=== PATIENT | female | born 1945 | race African-American/Black ===

== ENCOUNTER → 2016-06-02 | Outpatient (CLI) | payer MEDICARE ==
--- NOTE | 2016-06-02 17:39 | WOMENS IMAGING REPORT ---
EXAM DESCRIPTION: BILAT SCREENING MAMMO W/CAD COMPLETED DATE/TIME: 06/02/2016 2:59 pm REASON FOR STUDY: Z12.31 ROUTINE SCREENING MAMMO Z12.31 ENCNTR SCREEN MAMMOGRAM FOR MALIGNANT NEOPL ASM OF SANDY COMPARISON: Multiple since 2008 TECHNIQUE: Standard craniocaudal and mediolateral oblique views of each breast recorded using Movellasa l acquisition. LIMITATIONS: None. FINDINGS: Findings present which are benign by mammographic criteria. No suspicious masses, calcifi cations or architectural distortion. Read with the assistance of CAD. .[facility] - R2 Cenova Version 1.3 .[facility] Imaging - R2 Cenova Version 1.3 .[facility] - R2 Cenova Version 2.4 .[facility] - R2 Cenova Version 2.4 .[facility] - R2 Splitting Machine Operator Version 9.2 Benign mammographic findings may include one or more of the following: Smooth masses, popcorn/rim/co arse calcifications, asymmetries, post-procedure changes, and lesions with long-standing stability. BREAST DENSITY: c. The breasts are heterogeneously dense, which may obscure small masses. BIRAD: 2 BENIGN FINDING(S) RECOMMENDATION: ROUTINE SCREENING COMMENT: PATIENT NOTIFIED BY LETTER. The [employer] recommends an annual screening mammogram for women aged 40 years or over. Each patient will receive a reminder prior to the anniversary date of her mammogram. The [employer] (ACR) has developed recommendations for screening MRI of the breast s in certain patient populations, to be used in conjunction with mammography. Breast MRI surveillanc e may be appropriate for women with more than 20% lifetime risk of developing breast cancer as deter mined by genetic testing, significant family history of the disease, or history of mantle radiation f or Hodgkins Disease. ACR Practice Guidelines 2008. TECHNICAL DOCUMENTATION: FINDING NUMBER: (1) ASSESSMENT: (1) JOB ID: [id number] [employer]- All Rights Reserved
== END ==
LOC: WI 09:41
PROVIDERS: ATTEND Internal Medicine
DX: Z12.31 Encounter for screening mammogram for malignant neoplasm of breast (principal)
CPT/HCPCS: 77067; G0202

== ENCOUNTER → 2017-06-23 | Outpatient (CLI) | payer MEDICARE, MEDICAID ==
--- NOTE | 2017-06-23 11:41 | RADIOLOGY REPORT (SQ) ---
EXAM DESCRIPTION: KNEE LEFT 4 VIEWS COMPLETED DATE/TIME: 06/23/2017 10:16 am REASON FOR STUDY: PAIN IN LEFT KNEE M25.562 PAIN IN LEFT KNEE COMPARISON: None. NUMBER OF VIEWS: Four views. TECHNIQUE: AP, lateral, and both oblique radiographic images acquired of the left knee. LIMITATIONS: None. FINDINGS: MINERALIZATION: Normal. BONES: No acute fracture or dislocation. No worrisome bone lesions. JOINT: No significant suprapatellar knee joint effusion. Mild patellofemoral and medial compartment joint space narrowing. SOFT TISSUES: No soft tissue swelling. No radio-opaque foreign body. Spotty arterial vascular calci fication OTHER: No other significant finding. IMPRESSION: Medial and patellofemoral compartment joint space narrowing. No joint effusion. No acute fracture or malalignment TECHNICAL DOCUMENTATION: JOB ID: [id number] [employer]- All Rights Reserved
== END ==
LOC: OD 09:46
PROVIDERS: ATTEND Internal Medicine
DX: M25.562 Pain in left knee (principal)

== ENCOUNTER 2018-01-03 10:08 | Emergency (ER) | payer MEDICAID, MEDICARE ==
--- NOTE | 2018-01-03 10:59 | ER Document Report ---
ED General - General Chief Complaint: Knee Injury Stated Complaint: FALL/LEFT KNEE PAIN Time Seen by Provider: 01/03/18 10:42 Mode of Arrival: Ambulatory Information source: Patient, Relative Notes: 72-year-old -[place] female with insulin-dependent type 2 diabetes and hypertension presents after fall that occurred yesterday afternoon. Patient states she fell forward onto concrete while stepping up onto a curb outside of a skilled nursing. Complains of pain "all over", with sharp pain in the L knee and hip. Patient was able to walk with a Rollator following a fall. Currently on aspirin 81 mg daily. Denies head trauma, neck pain, loss of consciousness, vision changes, syncope. Patient denies any preceding chest pain, dizziness, shortness of breath. was with her and witnessed her trip up the curb. TRAVEL OUTSIDE OF THE [place] IN LAST 30 DAYS: No - HPI Onset: Just prior to arrival Onset/Duration: Sudden Quality of pain: Achy, Sharp Severity: Moderate Pain Level: 3 Associated symptoms: None, Body/muscle aches. denies: Chest pain, Chills, Nausea, Vomiting, Shortness of breath Exacerbated by: Movement, Walking Similar symptoms previously: No Recently seen / treated by doctor: No Past Medical History - General Information source: Patient - Social History Smoking Status: Current Every Day Smoker Cigarette use (# per day): Yes - 1/2-1ppd Smoking Education Provided: Yes Frequency of alcohol use: None Drug Abuse: None Lives with: Family Family History: DM, Hypertension - Medical History Notes: Insulin-dependent type 2 diabetes, hypertension, COPD - Past Medical History Cardiac Medical History: Pulmonary Medical History: Neurological Medical History: Denies: Hx Seizures Musculoskeletal Medical History: Past Surgical History: Reports: Hx Hysterectomy. Denies: Hx Pacemaker - Immunizations Hx Diphtheria, Pertussis, Tetanus Vaccination: Yes Review of Systems - Review of Systems Notes: REVIEW OF SYSTEMS: CONSTITUTIONAL : Denies fever, chills, or sweats. Denies recent illness. Denies weight loss, recent hospitalizations. EENT: Denies visual changes, eye pain. Denies nasal or sinus congestion or discharge. Denies sore throat, oral lesions, difficulty swallowing. CARDIOVASCULAR: Denies chest pain. Denies palpitations. Denies lower extremity edema. RESPIRATORY: Denies cough, cold, or chest congestion. Denies shortness of breath, wheezing. GASTROINTESTINAL: Denies abdominal pain or distention. Denies nausea, vomiting , or diarrhea. Denies blood in vomitus, stools, or per rectum. Denies black, tarry stools. Denies constipation. GENITOURINARY: Denies difficulty urinating, painful urination, frequency, blood in urine, or vaginal discharge. MUSCULOSKELETAL: Denies back or neck pain or stiffness. (+) bilateral knee pain, bilateral hip pain. SKIN: Denies rash, lesions or sores. HEMATOLOGIC : Denies easy bruising or bleeding. LYMPHATIC: Denies swollen glands. NEUROLOGICAL: Denies confusion or altered mental status. Denies passing out or loss of consciousness. Denies dizziness or lightheadedness. Denies headache. Denies weakness or paralysis. Denies problems difficulty with ambulation, slurred speech. Denies sensory loss, numbness, or tingling. Denies seizures. PSYCHIATRIC: Denies anxiety or stress. Denies depression, suicidal ideation, or homicidal ideation. Denies visual or auditory hallucinations. Physical Exam - Vital signs Vitals: Temp Pulse Resp BP Pulse Ox 98.4 F 77 16 124/53 L 97 01/03/18 10:15 01/03/18 10:15 01/03/18 10:15 01/03/18 10:15 01/03/18 10:15 - Notes Notes: PHYSICAL EXAMINATION: GENERAL: Well-appearing, well-nourished and in no acute distress. HEAD: Atraumatic, normocephalic. EYES: Pupils equal round and reactive to light, extraocular movements intact, conjunctiva are normal. ENT: Nares patent, oropharynx clear without exudates. Moist mucous membranes. NECK: Normal range of motion, supple without lymphadenopathy LUNGS: Breath sounds clear to auscultation bilaterally and equal. No wheezes rales or rhonchi. HEART: Regular rate and rhythm without murmurs ABDOMEN: Soft, nontender, nondistended abdomen. No guarding, no rebound. No masses appreciated. Female : deferred Musculoskeletal: flexion and extension of bilateral knees intact with mild pain , no crepitus or effusion noted. Internal and external rotation of bilateral hips intact. No pitting or edema. No cyanosis. No obvious deformity. DP, radial pulse intact. Pelvis stable. NEUROLOGICAL: Cranial nerves grossly intact. Normal speech, normal gait. Normal sensory, motor exams PSYCH: Normal mood, normal affect. SKIN: Warm, Dry, normal turgor, no rashes or lesions noted. Course - Re-evaluation Re-evalutation: Hip X-Ray 01/03/18 10:53 IMPRESSION: No acute findings Knee X-Ray 01/03/18 10:53 IMPRESSION: No acute findings 01/04/18 14:48 72-year-old female presents after a mechanical fall with complaint of left hip and left knee pain. Upon arrival vitals reviewed and within normal limits. Patient does not appear toxic or dehydrated. She is in no acute distress. She does have some mild pain with range of motion of the knee but no obvious deformity of the hip. Pulses are intact, sensation is intact, cap refill is intact. X-rays of the left knee and hip were obtained. Left knee shows mild effusion. Patient was provided an Brian wrap. She already has a walker at home. She was advised to ice and take Tylenol as needed for pain. Patient provided the opportunity to ask questions, and express concerns. Discharge instructions discussed. Patient is agreeable with discharge home. Return indications explained and discussed with the patient who displays understanding. Patient encouraged to return to the emergency department immediately with any concerns. - Vital Signs Vital signs: Temp Pulse Resp BP Pulse Ox 98.1 F 80 14 125/52 L 97 01/03/18 12:37 01/03/18 12:37 01/03/18 12:37 01/03/18 12:37 01/03/18 12:37 - Diagnostic Test Radiology reviewed: Image reviewed, Reports reviewed Discharge - Discharge Clinical Impression: Effusion, left knee Left knee pain Qualifiers: Chronicity: acute Qualified Code(s): M25.562 - Pain in left knee Strain of left hip Qualifiers: Encounter type: initial encounter Qualified Code(s): S76.012A - Strain of muscle, fascia and tendon of left hip, initial encounter Fall Qualifiers: Encounter type: initial encounter Qualified Code(s): W19.XXXA - Unspecified fall, initial encounter Condition: Good Disposition: HOME, SELF-CARE Instructions: Ice & Elevation ([facility]), Muscle Strain ([facility]), Sprained Knee ([facility]) Referrals: REJI SEAY MD [Primary Care Provider] - Follow up as needed
--- NOTE | 2018-01-03 11:50 | RADIOLOGY REPORT (SQ) ---
EXAM DESCRIPTION: HIP LEFT AP/LATERAL COMPLETED DATE/TIME: 01/03/2018 11:26 am REASON FOR STUDY: fall COMPARISON: None. NUMBER OF VIEWS: Two views. TECHNIQUE: AP pelvis and additional frog-leg view of the left hip. LIMITATIONS: None. FINDINGS: MINERALIZATION: Normal. LEFT HIP: No fracture or dislocation. No worrisome bone lesions. No significant joint space narrowi ng or bony spurring. RIGHT HIP: No fracture or dislocation. No worrisome bone lesions. No significant joint space narrow ing or bony spurring. PUBIS AND ISCHIUM: No fracture. PELVIS: No fracture. SACRUM: No fracture or dislocation. No worrisome bone lesions. LOWER LUMBAR SPINE: Not in the field of view SOFT TISSUES: Bilateral common iliac arterial vascular stents OTHER: No other significant finding. IMPRESSION: No acute findings TECHNICAL DOCUMENTATION: JOB ID: [id number] [employer]- All Rights Reserved Reading location - IP/workstation name: [email or web address]
--- NOTE | 2018-01-03 11:51 | RADIOLOGY REPORT (SQ) ---
EXAM DESCRIPTION: KNEE LEFT 4 VIEW COMPLETED DATE/TIME: 01/03/2018 11:26 am REASON FOR STUDY: fall COMPARISON: None. NUMBER OF VIEWS: Four views. TECHNIQUE: AP, lateral, and both oblique radiographic images acquired of the left knee. LIMITATIONS: None. FINDINGS: MINERALIZATION: Normal. BONES: No acute fracture or dislocation. No worrisome bone lesions. JOINT: Trace suprapatellar knee joint effusion. Mild patellofemoral compartment joint space narrowin g. SOFT TISSUES: No soft tissue swelling. No radio-opaque foreign body. Arterial vascular calcificatio n along the tibioperoneal trunk and calf vessels OTHER: No other significant finding. IMPRESSION: No acute findings TECHNICAL DOCUMENTATION: JOB ID: [id number] [employer]- All Rights Reserved Reading location - IP/workstation name: [email or web address]
[2018-01-03] MEDS ORDERED: HYDROCODONE/ACETAMINOPHEN 5-325 MG TABLET PO ONE (12:15)
[2018-01-03 12:40] VITALS: BP 125/52
== END 2018-01-03 12:41 | disposition home or self-care (01) ==
LOC: ER 10:08
DX: S76.012A Strain of muscle, fascia and tendon of left hip, initial encounter (principal); M25.562 Pain in left knee; M25.462 Effusion, left knee; W10.1XXA Fall (on)(from) sidewalk curb, initial encounter; Y93.89 Activity, other specified; Y92.129 Unspecified place in nursing home as the place of occurrence of the external cause; I10 Essential (primary) hypertension; F17.210 Nicotine dependence, cigarettes, uncomplicated; J44.9 Chronic obstructive pulmonary disease, unspecified; E11.9 Type 2 diabetes mellitus without complications; Z79.4 Long term (current) use of insulin; Z79.82 Long term (current) use of aspirin
CPT/HCPCS: 99283; 73502; 73564; A9270

== ENCOUNTER 2018-10-13 16:42 | Emergency (ER) | payer MEDICARE ==
--- NOTE | 2018-10-13 17:31 | ER Document Report ---
ED Medical Screen (RME) - General Chief Complaint: Ear Pain Stated Complaint: EAR PAIN Time Seen by Provider: 10/13/18 17:27 Primary Care Provider: REJI SEAY MD [Primary Care Provider] - Follow up as needed Mode of Arrival: Wheelchair Information source: Patient Notes: 72-year-old female presented to ED for complaint of left ear pain. She states she also has a very sore throat and cannot swallow. When I examined her ear there is no signs of infection in her left ear but she does have a very swollen throat with difficulty swallowing. She does have lymphadenopathy to the left side. Right side of her throat is not swollen. I have greeted and performed a rapid initial assessment of this patient. A comprehensive ED assessment and evaluation of the patient, analysis of test results and completion of medical decision making process will be conducted by an additional ED providers. Dictation of this chart was performed using voice recognition software; therefore, there may be some unintended grammatical errors. TRAVEL OUTSIDE OF THE [place] IN LAST 30 DAYS: No - Related Data Allergies/Adverse Reactions: No Known Allergies Allergy (Verified 10/13/18 16:59) Past Medical History - Past Medical History Cardiac Medical History: Reports: Hx Hypercholesterolemia, Hx Hypertension Pulmonary Medical History: Neurological Medical History: Denies: Hx Seizures Endocrine Medical History: Reports: Hx Diabetes Mellitus Type 2 Renal/ Medical History: Denies: Hx Peritoneal Dialysis Musculoskeltal Medical History: Past Surgical History: Reports: Hx Hysterectomy. Denies: Hx Pacemaker - Immunizations Hx Diphtheria, Pertussis, Tetanus Vaccination: Yes Physical Exam - Vital signs Vitals: Temp Pulse Resp BP Pulse Ox 99 F 85 18 146/80 H 99 10/13/18 17:00 10/13/18 17:00 10/13/18 17:00 10/13/18 17:00 10/13/18 17:00 Course - Vital Signs Vital signs: Temp Pulse Resp BP Pulse Ox 99 F 85 18 146/80 H 99 10/13/18 17:00 10/13/18 17:00 10/13/18 17:00 10/13/18 17:00 10/13/18 17:00 Doctor's Discharge - Discharge Referrals: REJI SEAY MD [Primary Care Provider] - Follow up as needed
[2018-10-13 18:24] LABS: ALANINE AMINOTRANSFERASE 15 U/L (9-52); ALBUMIN 4.5 g/dL (3.5-5.0); ALKALINE PHOSPHATASE 95 U/L (38-126); ANION GAP 12 (5-19); ASPARTATE AMINO TRANSFERASE 26 U/L (14-36); BILIRUBIN,DIRECT 0.5 mg/dL (0.0-0.4); BILIRUBIN,TOTAL 0.6 mg/dL (0.2-1.3); BLOOD UREA NITROGEN 15 mg/dL (7-20); CALCIUM 10.2 mg/dL (8.4-10.2); CARBON DIOXIDE 30 mmol/L (22-30); CHLORIDE 99 mmol/L (98-107); GLUCOSE 236 mg/dL (75-110); TOTAL PROTEIN 8.7 g/dL (6.3-8.2)
[2018-10-13 18:51] LABS: ABSOLUTE BASOPHILS # (AUTO) 0.1 10^3/uL (0.0-0.2); ABSOLUTE EOSINOPHILS # (AUTO) 0.2 10^3/uL (0.0-0.6); ABSOLUTE LYMPHOCYTES (AUTO) 2.5 10^3/uL (0.5-4.7); ABSOLUTE MONOCYTES (AUTO) 0.6 10^3/uL (0.1-1.4); ABSOLUTE NEUT (AUTO) 5.7 10^3/uL (1.7-8.2); BASOPHILS % (AUTO) 0.9 % (0-2); EOSINOPHILS % (AUTO) 2.1 % (0-6); HEMATOCRIT 37.7 % (36.0-47.0); HEMOGLOBIN 12.5 g/dL (12.0-15.5); LYMPHOCYTES % (AUTO) 27.2 % (13-45); MEAN CORPUSCULAR HEMOGLOBIN 28.5 pg (27.0-33.4); MEAN CORPUSCULAR HGB CONC 33.2 g/dL (32.0-36.0); MEAN CORPUSCULAR VOLUME 86 fl (80-97); MONOCYTES % (AUTO) 6.8 % (3-13); PLATELET COUNT 269 10^3/uL (150-450); RED CELL DISTRIBUTION WIDTH 13.6 % (11.5-14.0); TOTAL CELLS COUNTED % (AUTO) 100 %
[2018-10-13] MEDS ORDERED: ACETAMINOPHEN 325 MG TABLET PO ONE (19:22)
[2018-10-13] MEDS ORDERED: OXYCODONE HCL IR 5 MG TABLET PO ONE (19:22)
--- NOTE | 2018-10-13 19:22 | RADIOLOGY REPORT (SQ) ---
EXAM DESCRIPTION: CT SOFT TISSUE NECK WITH COMPLETED DATE/TIME: 10/13/2018 6:49 pm REASON FOR STUDY: Swollen throat difficulty swallowing COMPARISON: None. TECHNIQUE: Post IV contrasted scanning from skull base through lung apices with review of bone, soft tissue and lung windows. Reconstructed coronal and sagittal MPR images reviewed. All images stored on PACS. All CT scanners at this facility use dose modulation, iterative reconstruction, and/or weight based d osing when appropriate to reduce radiation dose to as low as reasonably achievable (ALARA). [facility]: Dose Right [facility]: CareDose [facility]: Dose Right [facility]: Teradose 4D [facility]: [employer] CONTRAST TYPE AND DOSE: contrast/concentration: Isovue 350.00 mg/ml; Total Contrast Delivered: 74.0 ml; Total Saline Delivered: 28.4 ml RENAL FUNCTION: GFR > 60. RADIATION DOSE: CT Rad equipment meets quality standard of care and radiation dose reduction techniq ues were employed. CTDIvol: 12.8 mGy. DLP: 358 mGy-cm. . LIMITATIONS: None. FINDINGS: SKULL BASE: Intact. MAJOR SALIVARY GLANDS: No solid or cystic masses. No inflammatory changes. LYMPHADENOPATHY: Prominent, although not pathologically enlarged bilateral cervical chain lymph nodes , likely reactive. MUCOSAL MASSES OR ASYMMETRY: The bilateral palatine tonsils are enlarged, with a large internal hypod ensity of the left tonsil measuring approximately 2.2 x 1.5 x 2.2 cm (series 2, image 33). There is a much more subtle subcentimeter hypodensity of the right palatine tonsil (series 2, image 33). LARYNX/CORDS: No abnormal findings. VASCULAR STRUCTURES: Extensive bilateral calcific atherosclerosis of the internal carotid artery orig ins, likely with greater than 50% stenosis of the left internal carotid artery origin. LUNG APICES: Unusual internal fat herniation of the right 2nd/3rd intercostal space, likely due to a lipoma (series 2, image 87). BONES: Intact. THYROID: Normal size. No masses. PARANASAL SINUSES: Clear. OTHER: No other significant finding. IMPRESSION: 1. The bilateral palatine tonsils are enlarged, with a large internal hypodensity of the left tonsil measuring approximately 2.2 x 1.5 x 2.2 cm. There is a much more subtle subcentimeter hy podensity of the right palatine tonsil. Findings are concerning for tonsillar suppuration/abscess. 2. Extensive bilateral calcific atherosclerosis of the internal carotid artery origins, likely with g reater than 50% stenosis of the left internal carotid artery origin. This may be further evaluated b y carotid ultrasound and/or CT angiogram if desired. TECHNICAL DOCUMENTATION: JOB ID: [id number] Quality ID # [id number]: Final reports with documentation of one or more dose reduction techniques (e.g., Au tomated exposure control, adjustment of the mA and/or kV according to patient size, use of iterative reconstruction technique) 2010 [employer]- All Rights Reserved Reading location - IP/workstation name: [email or web address]
[2018-10-13] MEDS ORDERED: RINGERS SOLUTION,LACTATED 1,000 ML IV ONE ×2 (19:23→20:56)
[2018-10-13] MEDS ORDERED: CLINDAMYCIN 600 MG/D5W RTU 600 MG/50 ML RTUPB IV ONE (19:23)
[2018-10-13] MEDS ORDERED: ONDANSETRON HCL INJ/PF 4 MG/2 ML SDV IV ONE (19:23)
[2018-10-13] MEDS ORDERED: KETOROLAC TROMETHAMINE INJ/PF 30 MG/1 ML SDV IV ONE (19:23)
[2018-10-13] MEDS: MORPHINE SULFATE 10 MG/ML INJ IV PRN ×2 (19:37→21:47)
[2018-10-13] MEDS ORDERED: DEXAMETHASONE SOD PHOS INJ 10 MG/1 ML VIAL IV ONE (20:56)
--- NOTE | 2018-10-13 21:02 | ER Document Report ---
ED General - General Chief Complaint: Ear Pain Stated Complaint: EAR PAIN Time Seen by Provider: 10/13/18 17:27 Primary Care Provider: REJI SEAY MD [Primary Care Provider] - Follow up as needed INES CAMPBELL DO [ASSOCIATE] - 10/15/18 Mode of Arrival: Wheelchair Notes: Patient is a 72-year-old female with past medical history of hypertension, hyperlipidemia, presents with 3 days of progressively worsening throat pain. Patient describes the pain as being isolated to her throat worse in the left versus the right. This is a severe, throbbing, dull pain worsened by swallowing. Not improved by anything. No history of similar symptoms in the past. States that she has felt like she has had a fever at home but has not recorded a temperature. Has not seen her primary care physician regarding today's concerns. States that she is able to swallow but it hurts. Denies any difficulty breathing. No trauma to the throat. TRAVEL OUTSIDE OF THE [place] IN LAST 30 DAYS: No - Related Data Allergies/Adverse Reactions: No Known Allergies Allergy (Verified 10/13/18 16:59) Past Medical History - General Information source: Patient - Social History Smoking Status: Current Every Day Smoker Frequency of alcohol use: None Drug Abuse: None Lives with: Family Family History: DM, Hypertension Patient has suicidal ideation: No Patient has homicidal ideation: No - Past Medical History Cardiac Medical History: Reports: Hx Hypercholesterolemia, Hx Hypertension Pulmonary Medical History: Neurological Medical History: Denies: Hx Seizures Endocrine Medical History: Reports: Hx Diabetes Mellitus Type 2 Renal/ Medical History: Denies: Hx Peritoneal Dialysis Musculoskeletal Medical History: Past Surgical History: Reports: Hx Hysterectomy. Denies: Hx Pacemaker - Immunizations Hx Diphtheria, Pertussis, Tetanus Vaccination: Yes Review of Systems - Review of Systems Notes: Constitutional: Positive for subjective fever HENT: Positive for throat pain Eyes: Negative for visual changes. Cardiovascular: Negative for chest pain. Respiratory: Negative for shortness of breath. Gastrointestinal: Negative for abdominal pain, positive for nausea Genitourinary: Negative for dysuria. Musculoskeletal: Negative for back pain. Skin: Negative for rash. Neurological: Negative for headaches, weakness or numbness. 10 point ROS negative except as marked above and in HPI. Physical Exam - Vital signs Vitals: Temp Pulse Resp BP Pulse Ox 99 F 85 18 146/80 H 99 10/13/18 17:00 10/13/18 17:00 10/13/18 17:00 10/13/18 17:00 10/13/18 17:00 Interpretation: Hypertensive Notes: PHYSICAL EXAMINATION: GENERAL: Appears moderately uncomfortable but in no acute distress HEAD: Atraumatic, normocephalic. EYES: Pupils equal round and reactive to light, extraocular movements intact, sclera anicteric, conjunctiva are normal. ENT: nares patent, prominent bilateral tonsillar hypertrophy, palatal hypertrophy much more dominant on the left versus right. Oropharynx is patent however. No stridor. Patient is able to swallow easily at the bedside. NECK: Normal range of motion, bilateral anterior cervical lymphadenopathy more dominant on the left versus right LUNGS: Breath sounds clear to auscultation bilaterally and equal. No wheezes rales or rhonchi. HEART: Regular rate and rhythm without murmurs ABDOMEN: Soft, nontender, normoactive bowel sounds. No guarding, no rebound. No masses appreciated. EXTREMITIES: Normal range of motion, no pitting or edema. No cyanosis. NEUROLOGICAL: No focal neurological deficits. Moves all extremities spontaneously and on command. PSYCH: Normal mood, normal affect. SKIN: Warm, Dry, normal turgor, no rashes or lesions noted. Course - Re-evaluation Re-evalutation: 10/13/18 20:59 Patient presents with 3 days of progressively worsening pain and swelling to the back of her throat more dominant on the right versus the left side. Patient is able to fully open her mouth without any significant trismus. She does have diffuse pharyngeal swelling although airway is widely patent. Dominance of swelling is towards the right side. No stridor, wheezing or tachypnea. Patient is able to drink a glass of water in front of me without any difficulty. Patient's labs are overall unremarkable. Vitals show mild tachycardia and hypertension although patient has a history of both by her report. I did discuss this case with the ENT physician on-call at [facility]. I discussed with him the CT diagnosis of a left tonsillar abscess. He states that he would advise only antibiotic treatment and nonsurgical management. He states as long as the patient does not have significant trismus or airway compromise she is safe for outpatient management on oral antibiotics. Patient has been able to swallow pills here in the emergency department. I have advised her of this recommendation and we will discharge home with 10 days of oral clindamycin and 5 days of dexamethasone. Patient has received her first dose of clindamycin and dexamethasone here in the emergency department. She is maintaining her airway, oral secretions, unable to tolerate p.o. without any significant difficulty. At this time will discharge with return precautions and follow-up recommendations. Verbal discharge instructions given a the bedside and opportunity for questions given. Medication warnings reviewed. Patient is in agreement with this plan and has verbalized understanding of return precautions and the need for ENT follow-up within the next 72 hours. - Vital Signs Vital signs: Temp Pulse Resp BP Pulse Ox 98.9 F 85 18 158/76 H 94 10/13/18 21:01 10/13/18 17:00 10/13/18 22:01 10/13/18 22:01 10/13/18 22:01 - Laboratory Result Diagrams: 10/13/18 18:20 10/13/18 17:25 Laboratory results interpreted by me: 10/13/18 17:25 Creatinine 1.26 H Est GFR ( Amer) 50 L Est GFR (Non-Af Amer) 42 L Glucose 236 H Direct Bilirubin 0.5 H Total Protein 8.7 H - Diagnostic Test Radiology reviewed: Reports reviewed Discharge - Discharge Clinical Impression: Tonsillar abscess, Throat pain, Odynophagia Condition: Good Disposition: HOME, SELF-CARE Additional Instructions: You were seen today for throat pain and swelling. The CT scan shows an abscess within your left tonsil. I spoke to Dr. Mcneal who is an ENT at [facility] in [place]. He advises antibiotic only management for this and avoid surgical management at this time. You have been started on clindamycin and given a dose of steroids here in the emergency department. Please take all antibiotics until completed. Please follow-up with ENT on Monday. Please also follow-up with your primary care physician. You need to return to the emergency department immediately if your symptoms begin to worsen specifically if you are having increasing pain, you develop any difficulty breathing, become unable to swallow, or have any other symptoms that are worrisome to you. Prescriptions: Clindamycin HCl 300 mg PO TID #30 capsule Dexamethasone [Decadron 4 mg Tablet] 4 mg PO DAILY #5 tablet Oxycodone HCl/Acetaminophen [Percocet 5-325 mg Tablet] 1 tab PO Q4H PRN #8 tablet PRN Reason: Referrals: REJI SEAY MD [Primary Care Provider] - Follow up as needed INES CAMPBELL DO [ASSOCIATE] - 10/15/18
[2018-10-13 22:38] VITALS: BP 158/76
== END 2018-10-13 23:00 | disposition home or self-care (01) ==
LOC: ER 16:42
DX: J36 Peritonsillar abscess (principal); R13.10 Dysphagia, unspecified; R07.0 Pain in throat; H92.09 Otalgia, unspecified ear; F17.200 Nicotine dependence, unspecified, uncomplicated; I10 Essential (primary) hypertension; E11.9 Type 2 diabetes mellitus without complications
CPT/HCPCS: 99284; 96361; 96375; 96365; 36415; 87040; 87070; 87880; 85025; 87077; 80053; 87186; 70491; J1885; J2270; J2405; J7120; J1100

== ENCOUNTER 2018-11-05 12:14 | Emergency (ER) | payer MEDICARE ==
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
[2018-11-05 16:01] LABS: ABSOLUTE BASOPHILS # (AUTO) 0.1 10^3/uL (0.0-0.2); ABSOLUTE EOSINOPHILS # (AUTO) 0.4 10^3/uL (0.0-0.6); ABSOLUTE LYMPHOCYTES (AUTO) 2.2 10^3/uL (0.5-4.7); ABSOLUTE MONOCYTES (AUTO) 0.7 10^3/uL (0.1-1.4); ABSOLUTE NEUT (AUTO) 2.8 10^3/uL (1.7-8.2); EOSINOPHILS % (AUTO) 6.8 % (0-6); HEMATOCRIT 38.4 % (36.0-47.0); HEMOGLOBIN 12.7 g/dL (12.0-15.5); LYMPHOCYTES % (AUTO) 36.1 % (13-45); MEAN CORPUSCULAR HEMOGLOBIN 28.2 pg (27.0-33.4); MEAN CORPUSCULAR HGB CONC 33.2 g/dL (32.0-36.0); MEAN CORPUSCULAR VOLUME 85 fl (80-97); MONOCYTES % (AUTO) 10.9 % (3-13); PLATELET COUNT 249 10^3/uL (150-450); RED BLOOD COUNT 4.52 10^6/uL (3.72-5.28); RED CELL DISTRIBUTION WIDTH 13.9 % (11.5-14.0); SEGMENTED NEUTROPHILS % (AUTO) 45.2 % (42-78); TOTAL CELLS COUNTED % (AUTO) 100 %; WHITE BLOOD COUNT 6.1 10^3/uL (4.0-10.5)
--- NOTE | 2018-11-05 16:17 | RADIOLOGY REPORT (SQ) ---
EXAM DESCRIPTION: CHEST 2 VIEWS COMPLETED DATE/TIME: 11/05/2018 4:04 pm REASON FOR STUDY: sob, cough COMPARISON: None. EXAM PARAMETERS: NUMBER OF VIEWS: two views TECHNIQUE: Digital Frontal and Lateral radiographic views of the chest acquired. RADIATION DOSE: NA LIMITATIONS: none FINDINGS: LUNGS AND PLEURA: A smoothly contoured focus of homogeneously increased density is seen at the right lateral apex ; this demonstrates contours suggesting extrapleural origin. The lungs are c lear and evenly aerated without focal consolidation. There is no pleural effusion or pneumothorax. MEDIASTINUM AND HILAR STRUCTURES: No masses or contour abnormalities. HEART AND VASCULAR STRUCTURES: Heart normal size. No evidence for failure. BONES: No acute findings. No lytic or blastic osseous lesions are visualized. HARDWARE: None in the chest. OTHER: No other significant finding. IMPRESSION: Right apical findings suggest loculated effusion versus pleural space mass. The adjacen t pulmonary parenchyma and osseous structures appear normal. TECHNICAL DOCUMENTATION: JOB ID: [id number] [employer]- All Rights Reserved Reading location - IP/workstation name: [email or web address]
[2018-11-05 16:22] LABS: ALANINE AMINOTRANSFERASE 36 U/L (9-52); ALBUMIN 4.4 g/dL (3.5-5.0); ALKALINE PHOSPHATASE 88 U/L (38-126); ANION GAP 11 (5-19); ASPARTATE AMINO TRANSFERASE 38 U/L (14-36); BILIRUBIN,DIRECT 0.3 mg/dL (0.0-0.4); BILIRUBIN,TOTAL 0.5 mg/dL (0.2-1.3); BLOOD UREA NITROGEN 20 mg/dL (7-20); CALCIUM 10.2 mg/dL (8.4-10.2); CARBON DIOXIDE 27 mmol/L (22-30); CHLORIDE 102 mmol/L (98-107); GLUCOSE 164 mg/dL (75-110); POTASSIUM 5.1 mmol/L (3.6-5.0); SODIUM 140.4 mmol/L (137-145); TOTAL PROTEIN 7.9 g/dL (6.3-8.2)
[2018-11-05 16:34] LABS: NT PRO BNP 98 pg/mL (5-900)
[2018-11-05 16:35] LABS: TROPONIN I < 0.012 ng/mL
[2018-11-05] MEDS ORDERED: METHYLPREDNISOLONE INJ 125 MG/2 ML SDV IV ONE (19:02)
[2018-11-05] MEDS ORDERED: IPRATROPIUM/ALBUTEROL 0.5-2.5 MG/3 ML AMPUL NEB ONE (19:02)
[2018-11-05] MEDS ORDERED: NORMAL SALINE 500 ML IV ONE (19:05)
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
[2018-11-05] MEDS ORDERED: DOXYCYCLINE HYCLATE 100 MG TABLET PO ONE (19:09)
--- NOTE | 2018-11-05 19:53 | RADIOLOGY REPORT (SQ) ---
EXAM DESCRIPTION: CT CHEST WITHOUT COMPLETED DATE/TIME: 11/05/2018 7:29 pm REASON FOR STUDY: apical mass COMPARISON: Chest radiographs 11/05/2018 TECHNIQUE: CT scan performed of the chest without intravenous contrast. Images reviewed with lung, soft tissue and bone windows. Reconstructed coronal and sagittal MPR images reviewed. All images st ored on PACS. All CT scanners at this facility use dose modulation, iterative reconstruction, and/or weight based d osing when appropriate to reduce radiation dose to as low as reasonably achievable (ALARA). [facility]: Dose Right [facility]: CareDose [facility]: Dose Right [facility]: Teradose 4D [facility]: Smart TRX Systems RADIATION DOSE: CT Rad equipment meets quality standard of care and radiation dose reduction techniq ues were employed. CTDIvol: 17.9 mGy. DLP: 718 mGy-cm. mGy. LIMITATIONS: No technical limitations. FINDINGS: LUNGS AND PLEURA: Abnormal findings demonstrated on comparison radiograph correlate to a 5 .2 x 3.5 x 3.4 cm bilobed mass demonstrating fatty attenuation and both intrathoracic and extrathorac ic components. This extends between the lateral aspects of the 2nd and 3rd ribs without osseous eros ion and only minimal mass effect. Trace atelectasis is seen of the adjacent lung. There is no focal consolidation, pleural effusion, or pleural calcifications. HILAR AND MEDIASTINAL STRUCTURES: No identified masses or abnormal nodes. No obvious aneurysm. HEART AND VASCULAR STRUCTURES: No aneurysm. No pericardial effusion. UPPER ABDOMEN: Multiple well-circumscribed hypoattenuating structures are seen throughout the liver, with the largest measuring on the order of 7.1 x 7.9 x 7.0 cm within the right hepatic dome. Scatter ed punctate calcifications are likewise seen throughout the liver. Diffuse atherosclerotic calcifica tions are present, to include the major visceral branches. Punctate calcifications seen within the k idneys may be on the basis of nonobstructing nephroliths versus vascular calcifications. THYROID AND OTHER SOFT TISSUES: No masses. No adenopathy. BONES: No significant finding. HARDWARE: None in the chest. OTHER: No other significant findings. 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 No acute pulmonary findings. Additional chronic and incidental findings as detailed a krysta. TECHNICAL DOCUMENTATION: JOB ID: [id number] Quality ID # [id number]: Final reports with documentation of one or more dose reduction techniques (e.g., Au tomated exposure control, adjustment of the mA and/or kV according to patient size, use of iterative reconstruction technique) 2010 [employer]- All Rights Reserved Reading location - IP/workstation name: [email or web address]
[2018-11-05] MEDS ORDERED: ALBUTEROL SULFATE HFA (90 MCG/PUFF) 8 GM MDI (1 MDI/ER DISP) IH PRN (20:55)
--- NOTE | 2018-11-05 23:26 | EKG REPORT ---
SEVERITY:- ABNORMAL ECG - SINUS RHYTHM ATRIAL PREMATURE COMPLEX INFERIOR INFARCT, OLD CONSIDER ANTERIOR INFARCT : Confirmed by: Laura Sanchez MD 05-Nov-2018 23:25:41
--- NOTE | 2018-11-06 10:16 | ER Document Report ---
Doctor's Note Notes: 11/06/18 10:14 Rounds: Chart reviewed and patient interviewed. Patient came to this emergency department complaining of difficulty breathing and shortness of breath with a cough. She apparently has a long time and continues to be current cigarette smoker. Her work-up has been essentially normal. Lab studies were all normal. Chest x-ray has some questionable findings so she had a CT of her chest and it was normal. Vital signs are all normal. O2 sats of all been in the 90s on room air. Patient does not appear to be short of breath at this time. Patient appears to be medically stable for transfer or discharge. Lyn Zamora MD
[2018-11-06 15:36] VITALS: BP 171/57
[2018-11-06] MEDS ORDERED: ACETAMINOPHEN 325 MG TABLET PO ONE (16:33)
== END 2018-11-06 16:47 | disposition home or self-care (01) ==
LOC: ER 12:14
DX: J44.1 Chronic obstructive pulmonary disease with (acute) exacerbation (principal); D17.4 Benign lipomatous neoplasm of intrathoracic organs; R05 Cough; R06.02 Shortness of breath; I10 Essential (primary) hypertension; E11.9 Type 2 diabetes mellitus without complications; F17.210 Nicotine dependence, cigarettes, uncomplicated; Z71.6 Tobacco abuse counseling
CPT/HCPCS: 93005; 99406; 94640; 99285; 96361; 96374; 36415; 85025; 80053; 84484; 83880; 71046; 71250; 93010; A9270 ×3; J2930; J7040; J3490; J7620